=== PATIENT | male | born 1965 | race Two or more races ===

== ENCOUNTER → 2017-03-20 | Emergency (ER) | payer OTHER ==
[~2017-03-20] VITALS: Ht 190.5 cm; Wt 194.1 kg
[~2017-03-20] MED LIST: CIPRO500 MG PO; KETO10TA2 PO; LEVAQUIN750 MG PO; ORPH100T PO; PYRIDIUM200 MG PO; TAMS0.4C PO
== END | disposition home or self-care (01) ==
LOC: ER 14:12
DX: M54.2 Cervicalgia (principal); M62.830 Muscle spasm of back

== ENCOUNTER 2017-04-25 09:55 | Emergency (ER) | payer OTHER ==
[~2017-04-25] VITALS: Ht 190.5 cm; Wt 191.4 kg
== END 2017-04-25 12:00 | disposition home or self-care (01) ==
LOC: ER 09:55
DX: M62.838 Other muscle spasm (principal)

== ENCOUNTER 2017-06-24 13:09 | Emergency (ER) | payer OTHER ==
[~2017-06-24] VITALS: Ht 190.5 cm; Wt 195.0 kg
== END 2017-06-24 17:42 | disposition home or self-care (01) ==
LOC: ER 13:09
DX: M54.5 Low back pain (principal); I10 Essential (primary) hypertension

== ENCOUNTER 2017-09-21 11:28 | Emergency (ER) | payer OTHER ==
[~2017-09-21] VITALS: Ht 190.5 cm; Wt 195.0 kg
[2017-09-21] MEDS ORDERED: NORFLEX100MG PO (16:05)
[2017-09-21] MEDS ORDERED: BACTRIM DS TAB1 EACH PO (16:05)
== END 2017-09-21 16:28 | disposition home or self-care (01) ==
LOC: ER 11:28
DX: B34.9 Viral infection, unspecified (principal); L97.919 Non-pressure chronic ulcer of unspecified part of right lower leg with unspecified severity

== ENCOUNTER 2017-11-28 21:11 | Emergency (ER) | payer OTHER ==
[~2017-11-28] VITALS: Ht 190.5 cm; Wt 199.6 kg
[~2017-11-28 21:11] MED LIST changes: +BACTRIM DS TAB1 EACH PO; +NORFLEX100MG PO
== END 2017-11-29 09:11 | disposition home or self-care (01) ==
LOC: ER 21:11
DX: H65.191 Other acute nonsuppurative otitis media, right ear (principal)

== ENCOUNTER 2018-01-10 16:47 | Emergency (ER) | payer OTHER ==
[~2018-01-10] VITALS: Ht 190.5 cm; Wt 199.6 kg
== END 2018-01-10 20:05 | disposition home or self-care (01) ==
LOC: ER 16:47
DX: B34.9 Viral infection, unspecified (principal); J09.X2 Influenza due to identified novel influenza A virus with other respiratory manifestations

== ENCOUNTER 2018-10-03 14:08 | Emergency (ER) | payer OTHER ==
[~2018-10-03] VITALS: Ht 188 cm; Wt 204.6 kg
== END 2018-10-03 17:24 | disposition home or self-care (01) ==
LOC: ER 14:08
DX: M25.562 Pain in left knee (principal)

== ENCOUNTER 2018-12-03 11:15 | Emergency (ER) | payer OTHER ==
[~2018-12-03] VITALS: Ht 190.5 cm; Wt 204.1 kg
== END 2018-12-03 15:33 | disposition home or self-care (01) ==
LOC: ER 11:15
DX: R10.32 Left lower quadrant pain (principal)

== ENCOUNTER 2018-12-15 05:48 | Emergency (ER) | payer OTHER ==
[~2018-12-15] VITALS: Ht 190.5 cm; Wt 204.1 kg
[2018-12-15] MEDS ORDERED: KETO10TA2 PO (09:05)
== END 2018-12-15 09:13 | disposition home or self-care (01) ==
LOC: ER 05:48
DX: M54.6 Pain in thoracic spine (principal)